=== PATIENT | female | born 1990 | race African-American/Black ===

== ENCOUNTER 2016-09-06 13:19 | Emergency (ER) | payer SELFPAY ==
[~2016-09-06] VITALS: Ht 170.2 cm; Wt 100.0 kg
[~2016-09-06 13:19] MED LIST: CIPROFLOXACN500 MG PO; LORTAB 7.5-3251 TAB PO; PERCOCET 5/325M1 TAB PO; TORADOL PO
[2016-09-06] MEDS ORDERED: MOTRIN800 MG PO (13:51)
[2016-09-06] MEDS ORDERED: TRAMADOL HYDROC50 MG PO (13:51)
[2016-09-06] MEDS ORDERED: FLEXERIL PO (13:51)
[2016-09-06 14:05] VITALS: BP 116/75
== END 2016-09-06 14:05 | disposition home or self-care (01) | DRG 552 ==
LOC: ED 13:19
DX: M54.5 Low back pain (principal)

== ENCOUNTER 2016-10-23 06:25 | Emergency (ER) | payer SELFPAY ==
[~2016-10-23] VITALS: Ht 170.2 cm; Wt 96.8 kg
[~2016-10-23 06:25] MED LIST changes: +FLEXERIL PO; +MOTRIN800 MG PO; +TRAMADOL HYDROC50 MG PO
[2016-10-23 06:59] LABS: HEMATOCRIT 34.6 % (37.0-47.0); HEMOGLOBIN 10.9 g/dl (12.0-16.0); IMMATURE GRANULOCYTES 0.4 % (0.0-1.0); MEAN CELL VOLUME 87.2 fL CALC (80.0-100.0); MEAN CORPUSCULAR HGB 27.5 pG CALC (26.0-32.0); MEAN CORPUSCULAR HGB CONC 31.5 g/L CALC (32.0-36.0); NEUT# 4.39 thou/uL (2.00-7.15); RED BLOOD COUNT 3.97 mill/uL (4.20-5.60); RED CELL DISTRI WIDTH 15.4 % (11.5-15.5)
[2016-10-23 07:02] LABS: URINE BILIRUBIN - DIPSTICK NEGATIVE (NEGATIVE); URINE BLOOD DIPSTICK NEGATIVE (NEGATIVE); URINE CLARITY CLOUDY; URINE COLOR YELLOW; URINE GLUCOSE - DIPSTICK NEGATIVE (NEGATIVE); URINE KETONE NEGATIVE (NEGATIVE); URINE LEUK ESTERASE TRACE (NEGATIVE); URINE NITRITE - DIPSTICK NEGATIVE (Negative); URINE PROTEIN - DIPSTICK NEGATIVE (NEG-TRACE); URINE UROBILINOGEN - DIPSTICK 0.2 E.U./dL (0.2)
[2016-10-23 07:13] LABS: ALBUMIN 3.9 g/dL (3.2-5.0); ALKALINE PHOSPHATASE 66 u/l (38-126); AMYLASE 92 u/l (30-110); ANION GAP 12 (6-22 (CALC)); BILIRUBIN, TOTAL 0.6 mg/dL (0.0-1.4); BUN 15 mg/dL (7-17); BUN/CREATININE RATIO 19 (12-20 (CALC)); CALCIUM 9.3 mg/dL (8.4-10.2); CARBON DIOXIDE 26 mmol/l (22-30); CHLORIDE 105 mmol/l (95-108); CREATININE 0.8 mg/dL (0.5-1.0); GFR > 60 ML/MIN (>=60 (CALC)); GFR FOR AFR.AMER. > 60 ML/MIN (>=60 (CALC)); GLUCOSE 88 mg/dL (65-105); POTASSIUM 4.1 mmol/l (3.5-5.1); SGOT/AST 18 u/l (14-36); SGPT/ALT 24 u/l (9-52); SODIUM 139 mmol/l (137-146); TOTAL PROTEIN 7.4 g/dL (6.3-8.2)
[2016-10-23] MEDS ORDERED: NEXIUM40 M1 PO (08:02)
[2016-10-23] MEDS ORDERED: IMODIUM2 MG PO (08:02)
[2016-10-23] MEDS ORDERED: ZOFRAN ODT4 MG PO (08:02)
[2016-10-23 08:04] VITALS: BP 124/61
== END 2016-10-23 08:15 | disposition home or self-care (01) | DRG 392 ==
LOC: ED 06:25
PROVIDERS: Emergency Medicine
DX: K52.9 Noninfective gastroenteritis and colitis, unspecified (principal)
CPT/HCPCS: S0164

== ENCOUNTER 2016-11-23 07:05 | Emergency (ER) | payer SELFPAY ==
[~2016-11-23] VITALS: Ht 170.2 cm; Wt 95.5 kg
[~2016-11-23 07:05] MED LIST changes: +IMODIUM2 MG PO; +NEXIUM40 M1 PO; +ZOFRAN ODT4 MG PO
[2016-11-23] MEDS ORDERED: PENICILLN VK500 MG PO (07:40)
[2016-11-23 07:45] VITALS: BP 129/83
== END 2016-11-23 07:45 | disposition home or self-care (01) | DRG 153 ==
LOC: ED 07:05
DX: J02.9 Acute pharyngitis, unspecified (principal); F17.290 Nicotine dependence, other tobacco product, uncomplicated

== ENCOUNTER 2017-01-31 15:02 | Emergency (ER) | payer SELFPAY ==
[~2017-01-31] VITALS: Ht 170.2 cm; Wt 95.5 kg
[~2017-01-31 15:02] MED LIST changes: +PENICILLN VK500 MG PO
[2017-01-31] MEDS ORDERED: NEXIUM40 M1 PO (15:57)
[2017-01-31] MEDS ORDERED: ZOFRAN ODT4 MG PO (15:57)
[2017-01-31 16:36] VITALS: BP 112/72
== END 2017-01-31 16:40 | disposition home or self-care (01) | DRG 392 ==
LOC: ED 15:02
DX: K52.9 Noninfective gastroenteritis and colitis, unspecified (principal)

== ENCOUNTER 2017-03-14 09:47 | Emergency (ER) | payer SELFPAY ==
[~2017-03-14] VITALS: Ht 170.2 cm; Wt 95.0 kg
[2017-03-14 10:43] LABS: HEMOGLOBIN 11.4 g/dl (12.0-16.0); IMMATURE GRANULOCYTES 0.4 % (0.0-1.0); MEAN CELL VOLUME 84.9 fL CALC (80.0-100.0); MEAN CORPUSCULAR HGB 26.9 pG CALC (26.0-32.0); MEAN CORPUSCULAR HGB CONC 31.7 g/L CALC (32.0-36.0); NEUT# 3.11 thou/uL (2.00-7.15); RED BLOOD COUNT 4.24 mill/uL (4.20-5.60); RED CELL DISTRI WIDTH 16.5 % (11.5-15.5)
[2017-03-14 11:01] LABS: ALKALINE PHOSPHATASE 53 u/l (38-126); ANION GAP 15 (6-22 (CALC)); BUN 9 mg/dL (7-17); BUN/CREATININE RATIO 12 (12-20 (CALC)); CALCIUM 9.1 mg/dL (8.4-10.2); CARBON DIOXIDE 21 mmol/l (22-30); CHLORIDE 110 mmol/l (95-108); CREATININE 0.8 mg/dL (0.5-1.0); GFR > 60 ML/MIN (>=60 (CALC)); GFR FOR AFR.AMER. > 60 ML/MIN (>=60 (CALC)); GLUCOSE 97 mg/dL (65-105); POTASSIUM 4.6 mmol/l (3.5-5.1); SGOT/AST 24 u/l (14-36); SGPT/ALT 24 u/l (9-52); SODIUM 141 mmol/l (137-146); TOTAL PROTEIN 7.5 g/dL (6.3-8.2)
[2017-03-14 11:13] LABS: MYOGLOBIN 28 ng/mL (0 - 62)
[2017-03-14] MEDS ORDERED: MOTRIN800 MG PO (11:16)
[2017-03-14 11:46] VITALS: BP 120/69
== END 2017-03-14 11:57 | disposition home or self-care (01) | DRG 313 ==
LOC: ED 09:47
PROVIDERS: Emergency Medicine
DX: R07.9 Chest pain, unspecified (principal)

== ENCOUNTER 2017-04-15 09:20 | Emergency (ER) | payer SELFPAY ==
[~2017-04-15] VITALS: Ht 170.2 cm; Wt 95.5 kg
[2017-04-15 10:25] LABS: HEMOGLOBIN 11.4 g/dl (12.0-16.0); IMMATURE GRANULOCYTES 0.4 % (0.0-1.0); MEAN CELL VOLUME 85.5 fL CALC (80.0-100.0); MEAN CORPUSCULAR HGB 27.1 pG CALC (26.0-32.0); MEAN CORPUSCULAR HGB CONC 31.7 g/L CALC (32.0-36.0); NEUT# 3.32 thou/uL (2.00-7.15); RED BLOOD COUNT 4.21 mill/uL (4.20-5.60); RED CELL DISTRI WIDTH 16.4 % (11.5-15.5)
[2017-04-15 10:27] LABS: URINE BILIRUBIN - DIPSTICK NEGATIVE (NEGATIVE); URINE BLOOD DIPSTICK NEGATIVE (NEGATIVE); URINE CLARITY CLEAR; URINE COLOR YELLOW; URINE GLUCOSE - DIPSTICK NEGATIVE (NEGATIVE); URINE KETONE NEGATIVE (NEGATIVE); URINE LEUK ESTERASE NEGATIVE (NEGATIVE); URINE NITRITE - DIPSTICK NEGATIVE (Negative); URINE PROTEIN - DIPSTICK NEGATIVE (NEG-TRACE); URINE UROBILINOGEN - DIPSTICK 0.2 E.U./dL (0.2)
[2017-04-15 10:36] LABS: ANION GAP 14 (6-22 (CALC)); BUN 15 mg/dL (7-17); BUN/CREATININE RATIO 18 (12-20 (CALC)); CALCIUM 9.2 mg/dL (8.4-10.2); CARBON DIOXIDE 24 mmol/l (22-30); CHLORIDE 106 mmol/l (95-108); CREATININE 0.8 mg/dL (0.5-1.0); GFR > 60 ML/MIN (>=60 (CALC)); GFR FOR AFR.AMER. > 60 ML/MIN (>=60 (CALC)); GLUCOSE 85 mg/dL (65-105); LIPASE 188 u/l (23-300); POTASSIUM 4.3 mmol/l (3.5-5.1); SODIUM 140 mmol/l (137-146)
[2017-04-15] MEDS ORDERED: CEPHALEXIN500 M1 PO (12:17)
[2017-04-15 12:23] VITALS: BP 110/70
== END 2017-04-15 12:31 | disposition home or self-care (01) | DRG 392 ==
LOC: ED 09:20
PROVIDERS: Family Medicine
DX: R10.30 Lower abdominal pain, unspecified (principal); N39.0 Urinary tract infection, site not specified; R30.0 Dysuria
CPT/HCPCS: Q9967

== ENCOUNTER 2017-07-10 04:48 | Emergency (ER) | payer SELFPAY ==
[~2017-07-10] VITALS: Ht 170.2 cm; Wt 90.4 kg
[~2017-07-10 04:48] MED LIST changes: +CEPHALEXIN500 M1 PO
[2017-07-10 05:38] LABS: URINE BILIRUBIN - DIPSTICK NEGATIVE (NEGATIVE); URINE BLOOD DIPSTICK NEGATIVE (NEGATIVE); URINE COLOR YELLOW; URINE GLUCOSE - DIPSTICK NEGATIVE (NEGATIVE); URINE KETONE NEGATIVE (NEGATIVE); URINE LEUK ESTERASE TRACE (NEGATIVE); URINE NITRITE - DIPSTICK NEGATIVE (Negative); URINE PROTEIN - DIPSTICK NEGATIVE (NEG-TRACE); URINE UROBILINOGEN - DIPSTICK 0.2 E.U./dL (0.2)
[2017-07-10 05:50] LABS: HEMATOCRIT 39.8 % (37.0-47.0); HEMOGLOBIN 12.4 g/dl (12.0-16.0); IMMATURE GRANULOCYTES 0.1 % (0.0-1.0); MEAN CELL VOLUME 87.3 fL CALC (80.0-100.0); MEAN CORPUSCULAR HGB 27.2 pG CALC (26.0-32.0); MEAN CORPUSCULAR HGB CONC 31.2 g/L CALC (32.0-36.0); NEUT# 4.03 thou/uL (2.00-7.15); RED BLOOD COUNT 4.56 mill/uL (4.20-5.60); RED CELL DISTRI WIDTH 16.8 % (11.5-15.5)
[2017-07-10 06:02] LABS: URINE CLARITY SL CLOUDY
[2017-07-10 06:09] LABS: ALBUMIN 4.6 g/dL (3.2-5.0); ALKALINE PHOSPHATASE 84 u/l (38-126); AMYLASE 104 u/l (30-110); ANION GAP 16 (6-22 (CALC)); BILIRUBIN, TOTAL 0.5 mg/dL (0.0-1.4); BUN 12 mg/dL (7-17); BUN/CREATININE RATIO 14 (12-20 (CALC)); CALCIUM 10.3 mg/dL (8.4-10.2); CARBON DIOXIDE 24 mmol/l (22-30); CHLORIDE 105 mmol/l (95-108); CREATININE 0.9 mg/dL (0.5-1.0); GFR > 60 ML/MIN (>=60 (CALC)); GFR FOR AFR.AMER. > 60 ML/MIN (>=60 (CALC)); GLUCOSE 98 mg/dL (65-105); LIPASE 138 u/l (23-300); SGOT/AST 20 u/l (14-36); SGPT/ALT 26 u/l (9-52); SODIUM 142 mmol/l (137-146); TOTAL PROTEIN 7.9 g/dL (6.3-8.2)
[2017-07-10] MEDS ORDERED: IBUPROFEN600 MG PO (07:10)
[2017-07-10 07:18] VITALS: BP 124/66
== END 2017-07-10 07:19 | disposition home or self-care (01) | DRG 392 ==
LOC: ED 04:48
PROVIDERS: Emergency Medicine
DX: R10.32 Left lower quadrant pain (principal); M62.830 Muscle spasm of back

== ENCOUNTER 2018-09-10 17:49 | Emergency (ER) | payer SELFPAY ==
[~2018-09-10] VITALS: Ht 172.7 cm; Wt 90.0 kg
[~2018-09-10 17:49] MED LIST changes: +IBUPROFEN600 MG PO
[2018-09-10 19:03] LABS: HEMATOCRIT 36.8 % (37.0-47.0); HEMOGLOBIN 11.6 g/dl (12.0-16.0); IMMATURE GRANULOCYTES 0.3 % (0.0-5.0); MEAN CELL VOLUME 89.3 fL CALC (80.0-100.0); MEAN CORPUSCULAR HGB 28.2 pG CALC (26.0-32.0); MEAN CORPUSCULAR HGB CONC 31.5 g/L CALC (32.0-36.0); NEUT# 7.2 thou/uL (2.00-7.15); RED BLOOD COUNT 4.12 mill/uL (4.20-5.60); RED CELL DISTRI WIDTH 16.9 % (11.5-15.5)
[2018-09-10 19:13] LABS: ANION GAP 14 (6-22 (CALC)); BUN 9 mg/dL (7-17); BUN/CREATININE RATIO 13 (12-20 (CALC)); CARBON DIOXIDE 25 mmol/l (22-30); CHLORIDE 103 mmol/l (95-108); CREATININE 0.7 mg/dL (0.5-1.0); GFR > 60 ML/MIN (>=60 (CALC)); GFR FOR AFR.AMER. > 60 ML/MIN (>=60 (CALC)); SODIUM 138 mmol/l (137-146)
[2018-09-10] MEDS ORDERED: NAPROSYN500 MG PO (20:11)
[2018-09-10] MEDS ORDERED: AMOXICILLIN500 MG PO (20:11)
[2018-09-10 20:24] VITALS: BP 118/65
== END 2018-09-10 20:23 | disposition home or self-care (01) | DRG 159 ==
LOC: ED 17:49
PROVIDERS: Family Medicine
DX: K04.7 Periapical abscess without sinus (principal); F17.210 Nicotine dependence, cigarettes, uncomplicated
CPT/HCPCS: Q9967

== ENCOUNTER 2018-10-25 10:30 | Emergency (ER) | payer SELFPAY ==
[~2018-10-25] VITALS: Ht 172.7 cm; Wt 90.0 kg
[~2018-10-25 10:30] MED LIST changes: +AMOXICILLIN500 MG PO; +NAPROSYN500 MG PO
[2018-10-25] MEDS ORDERED: PENICILLN VK500 MG PO (12:23)
[2018-10-25 12:44] VITALS: BP 137/81
== END 2018-10-25 12:44 | disposition home or self-care (01) | DRG 159 ==
LOC: ED 10:30
DX: K08.9 Disorder of teeth and supporting structures, unspecified (principal); F17.210 Nicotine dependence, cigarettes, uncomplicated

== ENCOUNTER 2018-11-13 16:13 | Emergency (ER) | payer SELFPAY ==
[~2018-11-13] VITALS: Ht 172.7 cm; Wt 89.0 kg
[2018-11-13 17:29] VITALS: BP 169/77
== END 2018-11-13 18:00 | disposition home or self-care (01) | DRG 761 ==
LOC: ED 16:13
DX: N94.6 Dysmenorrhea, unspecified (principal); M54.5 Low back pain

== ENCOUNTER 2019-01-17 21:55 | Emergency (ER) | payer SELFPAY ==
[~2019-01-17] VITALS: Ht 172.7 cm; Wt 90.0 kg
[2019-01-17] MEDS ORDERED: AMOXICILLIN500 MG PO (22:06)
[2019-01-17 23:23] VITALS: BP 132/88
== END 2019-01-17 23:26 | disposition home or self-care (01) | DRG 605 ==
LOC: ED 21:55
PROC: 0HQFXZZ Repair Right Hand Skin, External Approach (ICD-10-PCS; principal; 2019-01-17)
DX: S61.212A Laceration without foreign body of right middle finger without damage to nail, initial encounter (principal); S61.214A Laceration without foreign body of right ring finger without damage to nail, initial encounter; W26.8XXA Contact with other sharp object(s), not elsewhere classified, initial encounter; Y93.G3 Activity, cooking and baking; Y92.000 Kitchen of unspecified non-institutional (private) residence as the place of occurrence of the external cause

== ENCOUNTER 2019-01-30 03:20 | Emergency (ER) | payer SELFPAY ==
[~2019-01-30] VITALS: Ht 172.7 cm; Wt 95.8 kg
[2019-01-30 03:25] VITALS: BP 146/98
[2019-01-30] MEDS ORDERED: AMOXICILLIN500 MG PO (03:51)
[2019-01-30] MEDS ORDERED: ULTRAM50 M1 PO (03:51)
== END 2019-01-30 04:07 | disposition home or self-care (01) | DRG 159 ==
LOC: ED 03:20
DX: K04.7 Periapical abscess without sinus (principal)

== ENCOUNTER 2019-03-02 19:03 | Emergency (ER) | payer SELFPAY ==
[~2019-03-02] VITALS: Ht 170.2 cm; Wt 86.4 kg
[~2019-03-02 19:03] MED LIST changes: +ULTRAM50 M1 PO
[2019-03-02 19:53] LABS: URINE BILIRUBIN - DIPSTICK NEGATIVE (NEGATIVE); URINE BLOOD DIPSTICK NEGATIVE (NEGATIVE); URINE COLOR YELLOW; URINE GLUCOSE - DIPSTICK NEGATIVE (NEGATIVE); URINE KETONE NEGATIVE (NEGATIVE); URINE LEUK ESTERASE NEGATIVE (NEGATIVE); URINE NITRITE - DIPSTICK NEGATIVE (Negative); URINE PH 7.5 (4.5-8.0); URINE PROTEIN - DIPSTICK NEGATIVE (NEG-TRACE); URINE SPECIFIC GRAVITY 1.015; URINE UROBILINOGEN - DIPSTICK 0.2 E.U./dL (0.2)
[2019-03-02 19:54] LABS: HEMATOCRIT 35.9 % (37.0-47.0); HEMOGLOBIN 11.1 g/dl (12.0-16.0); IMMATURE GRANULOCYTES 0.3 % (0.0-5.0); MEAN CELL VOLUME 85.5 fL CALC (80.0-100.0); MEAN CORPUSCULAR HGB 26.4 pG CALC (26.0-32.0); MEAN CORPUSCULAR HGB CONC 30.9 g/L CALC (32.0-36.0); NEUT# 4.98 thou/uL (2.00-7.15); RED BLOOD COUNT 4.2 mill/uL (4.20-5.60); RED CELL DISTRI WIDTH 15.9 % (11.5-15.5)
[2019-03-02 20:05] LABS: ALBUMIN 4.3 g/dL (3.2-5.0); ALKALINE PHOSPHATASE 76 u/l (38-126); AMYLASE 162 u/l (30-110); BUN 13 mg/dL (7-17); BUN/CREATININE RATIO 18 (12-20 (CALC)); CHLORIDE 104 mmol/l (95-108); CREATININE 0.7 mg/dL (0.5-1.0); GFR > 60 ML/MIN (>=60 (CALC)); GFR FOR AFR.AMER. > 60 ML/MIN (>=60 (CALC)); LIPASE 215 u/l (23-300); POTASSIUM 4.2 mmol/l (3.5-5.1); SGOT/AST 26 u/l (14-36); SODIUM 140 mmol/l (137-146)
[2019-03-02 20:06] LABS: ANION GAP 9 (6-22 (CALC)); BARBITURATES NEGATIVE (NEGATIVE); BILIRUBIN, TOTAL 0.8 mg/dL (0.0-1.4); CARBON DIOXIDE 31 mmol/l (22-30); COCAINE NEGATIVE (NEGATIVE); METHADONE NEGATIVE (NEGATIVE); OXCYCODONE NEGATIVE (NEGATIVE); TETRAHYDROCANNABIONOL POSITIVE (NEGATIVE); TRICYLIC ANTIDEPRESSANTS NEGATIVE (NEGATIVE)
[2019-03-02 22:10] VITALS: BP 138/72
== END 2019-03-02 22:10 | disposition home or self-care (01) | DRG 392 ==
LOC: ED 19:03
PROVIDERS: Emergency Medicine
DX: R11.10 Vomiting, unspecified (principal)

== ENCOUNTER 2019-08-06 | Emergency (ER) | payer OTHER ==
[2019-08-06 08:57] LABS: HEMATOCRIT 35.3 % (37.0-47.0); HEMOGLOBIN 11.1 g/dl (12.0-16.0); IMMATURE GRANULOCYTES 0.3 % (0.0-5.0); MEAN CELL VOLUME 86.7 fL CALC (80.0-100.0); MEAN CORPUSCULAR HGB 27.3 pG CALC (26.0-32.0); MEAN CORPUSCULAR HGB CONC 31.4 g/L CALC (32.0-36.0); NEUT# 4.18 thou/uL (2.00-7.15); RED BLOOD COUNT 4.07 mill/uL (4.20-5.60); RED CELL DISTRI WIDTH 17.3 % (11.5-15.5)
[2019-08-06 09:29] LABS: ALBUMIN 4.3 g/dL (3.2-5.0); ALKALINE PHOSPHATASE 73 u/l (38-126); BUN 15 mg/dL (7-17); BUN/CREATININE RATIO 21 (12-20 (CALC)); CHLORIDE 105 mmol/l (95-108); CREATININE 0.7 mg/dL (0.5-1.0); GFR > 60 ML/MIN (>=60 (CALC)); GFR FOR AFR.AMER. > 60 ML/MIN (>=60 (CALC)); LIPASE 63 u/l (23-300); POTASSIUM 3.7 mmol/l (3.5-5.1); SGOT/AST 33 u/l (14-36); SODIUM 138 mmol/l (137-146); TOTAL PROTEIN 7.9 g/dL (6.3-8.2)
[2019-08-06 09:30] LABS: ANION GAP 13 (6-22 (CALC)); BILIRUBIN, TOTAL 0.3 mg/dL (0.0-1.4); CARBON DIOXIDE 24 mmol/l (22-30)
[2019-08-06 09:49] LABS: URINE BILIRUBIN - DIPSTICK NEGATIVE (NEGATIVE); URINE BLOOD DIPSTICK NEGATIVE (NEGATIVE); URINE COLOR YELLOW; URINE GLUCOSE - DIPSTICK NEGATIVE (NEGATIVE); URINE KETONE NEGATIVE (NEGATIVE); URINE LEUK ESTERASE NEGATIVE (NEGATIVE); URINE NITRITE - DIPSTICK NEGATIVE (Negative); URINE PROTEIN - DIPSTICK NEGATIVE (NEG-TRACE); URINE UROBILINOGEN - DIPSTICK 0.2 E.U./dL (0.2)
[2019-08-06] MEDS ORDERED: AMOXICILLIN/CL875 MG PO (10:14)
== END 2019-08-06 10:23 | disposition home or self-care (01) | DRG 556 ==
PROVIDERS: Family Medicine
DX: M25.571 Pain in right ankle and joints of right foot (principal); S01.511A Laceration without foreign body of lip, initial encounter; V48.5XXA Car driver injured in noncollision transport accident in traffic accident, initial encounter
CPT/HCPCS: Q9967

== ENCOUNTER 2020-01-12 16:11 | Emergency (ER) | payer SELFPAY ==
[~2020-01-12] VITALS: Ht 170.2 cm; Wt 100.0 kg
[~2020-01-12 16:11] MED LIST changes: +AMOXICILLIN/CL875 MG PO
[2020-01-12] MEDS ORDERED: TRAMADOL HYDROC50 MG PO (17:32)
[2020-01-12] MEDS ORDERED: PENICILLN VK500 MG PO (17:32)
[2020-01-12 17:35] VITALS: BP 124/79
== END 2020-01-12 17:35 | disposition home or self-care (01) | DRG 159 ==
LOC: ED 16:11
DX: S02.5XXA Fracture of tooth (traumatic), initial encounter for closed fracture (principal); K04.7 Periapical abscess without sinus; F17.290 Nicotine dependence, other tobacco product, uncomplicated; X58.XXXA Exposure to other specified factors, initial encounter